=== PATIENT | male | born 1965 | race Caucasian/White ===

== ENCOUNTER 2024-08-08 21:15 | Emergency (ER) | payer SELFPAY ==
[2024-08-08] MEDS: Hydrochlorothiazide 25 MG Tab PO ONE (21:57)
[2024-08-08] MEDS: cefTRIAXone 1 GM Vial IM ONE (21:57)
[2024-08-08] MEDS ORDERED: Amoxicillin 500 MG Cap ONE (22:00)
[2024-08-08] MEDS: cefTRIAXone 1 GM Vial ONE (22:34)
== END 2024-08-08 22:10 | disposition home or self-care (01) ==
LOC: LB.ED 21:15
DX: L03.115 Cellulitis of right lower limb (principal); R60.0 Localized edema; Z79.899 Other long term (current) drug therapy
CPT/HCPCS: 96372; 99283; A9270; J0696